=== PATIENT | male | born 1965 | race Caucasian/White ===

== ENCOUNTER 2016-05-07 07:08 | Emergency (ER) | payer MEDICARE, MEDICAID ==
[2015-11-28 07:16] VITALS: BMI 36.6
[~2016-05-07 07:08] MED LIST: HYDROCODONE-APA1 TAB PO; KEPPRA500 MG PO; LISINOPRIL10 MG PO; PRILOSEC10 M1 PO; ZANAFLEX4 MG PO; ZESTRIL10 MG PO
== END 2016-05-07 09:25 | disposition home or self-care (01) ==
LOC: D.ER 07:08
DX: G43.909 Migraine, unspecified, not intractable, without status migrainosus (principal); I10 Essential (primary) hypertension; G35 Multiple sclerosis; G40.909 Epilepsy, unspecified, not intractable, without status epilepticus